=== PATIENT | female | born 1990 | race Caucasian/White ===

== ENCOUNTER 2020-02-09 13:56 | Emergency (ER) | payer MEDICAID ==
[~2020-02-09] VITALS: Ht 160 cm; Wt 83.0 kg
[2020-02-09 14:01] VITALS: BP 124/70; Ht 160 cm; Wt 83.0 kg
[2020-02-09 14:35] LABS: BASOPHIL % 0.5 % (0-2); PLATELET COUNT 200 x10^3mcL (130-400); RED CELL DISTRIBUTION WIDTH 13.4 % (11.5-14.5)
[2020-02-09 14:47] LABS: CALCIUM 8.5 mg/dL (8.5-10.1); CARBON DIOXIDE 23.7 mmol/L (21-32); CHLORIDE SERUM 103 mmol/L (98-107); CREATININE SERUM 0.7 mg/dL (0.6-1.0); GFR1 > 60 mL/min; GLUCOSE SERUM 107 mg/dL (74-106); POTASSIUM SERUM 3.9 mmol/L (3.5-5.1); SODIUM SERUM 137 mmol/L (136-145)
[2020-02-09 14:51] LABS: ALBUMIN 3.7 g/dL (3.4-5.0); ALKALINE PHOSPHATASE 80 U/L (46-116); ALT/SGPT 25 U/L (14-59); AST/SGOT 14 U/L (15-37); BILIRUBIN TOTAL 0.3 mg/dL (0.20-1.00); LIPASE 117 IU/L (73-393)
== END 2020-02-09 15:53 | disposition home or self-care (01) ==
LOC: ED 13:56
PROVIDERS: Emergency Medicine
DX: K59.00 Constipation, unspecified (principal)
CPT/HCPCS: J7030; Q0092

== ENCOUNTER → 2020-03-09 | Outpatient (CLI) | payer MEDICAID ==
[2020-03-09 16:26] LABS: BASOPHIL % 0.6 % (0-2); PLATELET COUNT 219 x10^3mcL (130-400); RED CELL DISTRIBUTION WIDTH 14.4 % (11.5-14.5)
[2020-03-09 16:32] LABS: ALKALINE PHOSPHATASE 90 U/L (46-116); ALT/SGPT 22 U/L (14-59); AST/SGOT 10 U/L (15-37); BILIRUBIN TOTAL 0.29 mg/dL (0.20-1.00); CALCIUM 8.8 mg/dL (8.5-10.1); CARBON DIOXIDE 27.2 mmol/L (21-32); CHLORIDE SERUM 103 mmol/L (98-107); CREATININE SERUM 0.7 mg/dL (0.6-1.0); GFR1 > 60 mL/min; GLUCOSE SERUM 87 mg/dL (74-106); SODIUM SERUM 136 mmol/L (136-145); TOTAL PROTEIN, SERUM 7.4 g/dL (6.4-8.2)
== END | disposition home or self-care (01) ==
LOC: LB 15:44
DX: K28.3 Acute gastrojejunal ulcer without hemorrhage or perforation (principal)